=== PATIENT | male | born 1980 | race African-American/Black ===

== ENCOUNTER 2017-10-14 21:47 | Emergency (ER) | payer OTHER ==
[~2017-10-14] VITALS: Ht 177.8 cm; Wt 80.0 kg
[2017-10-14 22:02] VITALS: BP 135/87; PULSE 81; RESP 18; TEMP 98.2; O2SAT 100
[2017-10-14] MEDS ORDERED: SODIUM CHLOR 0.9% 1000 ML INJ 1,000 ML IV ONE (22:17)
--- NOTE | 2017-10-14 22:24 | PD ---
HPI Chief Complaint: Back/ Neck Pain or Injury Time Seen by Provider: 22:08 Travel History International Travel<30 days: No Contact w/Intl Traveler<30days: No Traveled to known affect area: No History of Present Illness HPI 37-year-old male presents emergency department for evaluation of left flank pain that has been persistent for the last 2 weeks. Patient states that his pain is sharp and comes and goes. Rated 8/10 and says his pain started in the left mid back and is radiating up to the left lower thoracic region. Patient denies any exacerbating factors. Denies any recent excessive activity or trauma. Says he is taking ibuprofen without significant relief. He denies any urinary symptoms, fever, nausea, vomiting, diarrhea. Denies history of kidney stones. Denies any medical history or medication use. Denies loss of bowel or bladder function, saddle anesthesia, radiculopathy. 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 PFSH Past Medical History Medical History: Denies Significant Hx Diminished Hearing: No Tetanus Vaccination: Unknown Influenza Vaccination: No Past Surgical History Surgical History: No Previous Surgery Social History Alcohol Use: Yes (occasionally) Tobacco Use: No Substance Use: No Allergies-Medications (Allergen,Severity, Reaction): Coded Allergies: No Known Allergies (Unverified , 10/14/17) Reported Meds & Prescriptions Reported Meds & Active Scripts Active No Active Prescriptions or Reported Medications Review of Systems Except as stated in HPI: all other systems reviewed are Neg Physical Exam Narrative GENERAL: Well-developed, well-nourished in no apparent distress SKIN: Focused skin assessment warm/dry. HEAD: Atraumatic. Normocephalic. EYES: Pupils equal and round. No scleral icterus. No injection or drainage. ENT: No nasal bleeding or discharge. Mucous membranes pink and moist. NECK: Trachea midline. No JVD. CARDIOVASCULAR: Regular rate and rhythm. No murmur appreciated. RESPIRATORY: No accessory muscle use. Clear to auscultation. Breath sounds equal bilaterally. GASTROINTESTINAL: Abdomen soft, non-tender, nondistended. No CVA tenderness MUSCULOSKELETAL: No obvious deformities. No clubbing. No cyanosis. No edema. NEUROLOGICAL: Awake and alert. No obvious cranial nerve deficits. Motor grossly within normal limits. Normal speech. PSYCHIATRIC: Appropriate mood and affect; insight and judgment normal. Data Data Last Documented VS Vital Signs Date Time Temp Pulse Resp B/P (MAP) Pulse Ox O2 Delivery O2 Flow Rate FiO2 10/14/17 22:02 98.2 81 18 135/87 (103) 100 Orders Orders Complete Blood Count With Diff (10/14/17 22:17) Comprehensive Metabolic Panel (10/14/17 22:17) Urinalysis - C+S If Indicated (10/14/17 22:17) Ct Abd/Pel W/O Iv Contrast (10/14/17 22:17) Ecg Monitoring (10/14/17 22:17) Iv Access Insert/Monitor (10/14/17 22:17) Ketorolac Inj (Toradol Inj) (10/14/17 22:30) Sodium Chloride 0.9% Flush (Ns Flush) (10/14/17 22:30) Sodium Chlor 0.9% 1000 Ml Inj (Ns 1000 M (10/14/17 22:17) Labs Laboratory Tests Test 10/14/17 22:36 White Blood Count 6.2 TH/MM3 Red Blood Count 4.50 MIL/MM3 Hemoglobin 14.0 GM/DL Hematocrit 39.7 % Mean Corpuscular Volume 88.3 FL Mean Corpuscular Hemoglobin 31.2 PG Mean Corpuscular Hemoglobin Concent 35.4 % Red Cell Distribution Width 12.9 % Platelet Count 234 TH/MM3 Mean Platelet Volume 8.7 FL Neutrophils (%) (Auto) 53.2 % Lymphocytes (%) (Auto) 33.4 % Monocytes (%) (Auto) 7.7 % Eosinophils (%) (Auto) 2.0 % Basophils (%) (Auto) 3.7 % Neutrophils # (Auto) 3.3 TH/MM3 Lymphocytes # (Auto) 2.1 TH/MM3 Monocytes # (Auto) 0.5 TH/MM3 Eosinophils # (Auto) 0.1 TH/MM3 Basophils # (Auto) 0.2 TH/MM3 CBC Comment DIFF FINAL Differential Comment Blood Urea Nitrogen 25 MG/DL Creatinine 1.66 MG/DL Random Glucose 115 MG/DL Albumin 4.4 GM/DL Calcium Level 9.6 MG/DL Aspartate Amino Transf (AST/SGOT) 27 U/L Alanine Aminotransferase (ALT/SGPT) 31 U/L Sodium Level 142 MEQ/L Potassium Level 3.5 MEQ/L Chloride Level 105 MEQ/L Carbon Dioxide Level 30.9 MEQ/L Anion Gap 6 MEQ/L Estimat Glomerular Filtration Rate 47 ML/MIN [facility] Medical Decision Making Medical Screen Exam Complete: Yes Emergency Medical Condition: Yes Differential Diagnosis Nephrolithiasis, hydronephrosis, urinary tract infection, muscle strain Narrative Course 37-year-old male presents emergency department for evaluation of left flank pain that has been persistent for the last 2 weeks. Patient states that his pain is sharp and comes and goes. Rated 8/10 and says his pain started in the left mid back and is radiating up to the left lower thoracic region. Patient denies any exacerbating factors. Denies any recent excessive activity or trauma. Says he is taking ibuprofen without significant relief. He denies any urinary symptoms, fever, nausea, vomiting, diarrhea. Denies history of kidney stones. Denies any medical history or medication use. Denies loss of bowel or bladder function, saddle anesthesia, radiculopathy. 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 Vital signs are stable. Blood pressure 135/87, temperature 98.2. Heart rate 81. Toradol and IV fluids administered. The exam findings are essentially unremarkable. Unable to reproduce his pain. No CVA tenderness. Patient resting comfortably in bed. Labs and imaging studies ordered. Last Impressions Abdomen/Pelvis CT 10/14/172216 Signed Impressions: Service Date/Time: Saturday, October 14, 2017 22:32 - CONCLUSION: 1. No radiopaque renal calculi or obstructive uropathy. 2. Normal appendix. 3. [place] periumbilical anterior abdominal wall hernia containing normal-appearing small bowel. Bubba Cruz MD BUN/creatinine slightly decreased for patient's age. BUN 25/creatinine 1.66 Urinalysis pending as of transfer care to Dr. Shaffer. Please see her note for further information and dispo. Scripts No Active Prescriptions or Reported Meds Condition: Stable Radha Travis Oct 14, 2017 22:24
[2017-10-14] MEDS ORDERED: SODIUM CHLORIDE 0.9% FLUSH 10 ML FLUSH IVF PRN (22:30)
[2017-10-14] MEDS ORDERED: KETOROLAC TROMETHAMINE 30 MG/ML (IVP) VIAL IV PUSH ONE (22:30)
[2017-10-14 22:41] LABS: AUTOMATED NEUTROPHIL # 3.3 TH/MM3 (1.8-7.7); BASOPHIL # 0.2 TH/MM3 (0-0.2); BASOPHIL % 3.7 % (0.0-2.0); EOSINOPHIL # 0.1 TH/MM3 (0-0.4); HEMATOCRIT 39.7 % (39.0-51.0); LYMPH % 33.4 % (9.0-44.0); LYMPHOCYTE # 2.1 TH/MM3 (1.0-4.8); MEAN CELL VOLUME 88.3 FL (80.0-100.0); MEAN CORPUSCULAR HEMOGLOBIN 31.2 PG (27.0-34.0); MEAN CORPUSCULAR HGB CONC 35.4 % (32.0-36.0); MEAN PLATELET VOLUME 8.7 FL (7.0-11.0); MONO % 7.7 % (0.0-8.0); MONOCYTE # 0.5 TH/MM3 (0-0.9); NEUT % 53.2 % (16.0-70.0); PLATELET COUNT 234 TH/MM3 (150-450); RED CELL DISTRIBUTION WIDTH 12.9 % (11.6-17.2); WHITE BLOOD COUNT 6.2 TH/MM3 (4.0-11.0)
--- NOTE | 2017-10-14 22:49 | RADRPT ---
EXAM DATE/TIME: 10/14/2017 22:32 [facility] COMPARISON: No previous studies available for comparison. INDICATIONS : Left flank pain. ORAL CONTRAST: No oral contrast ingested. RADIATION DOSE: 6.64 CTDIvol (mGy) MEDICAL HISTORY : None SURGICAL HISTORY : None. ENCOUNTER: Initial ACUITY: 1 day PAIN SCALE: 7/10 LOCATION: Left flank TECHNIQUE: Volumetric scanning of the abdomen and pelvis was performed. Using automated exposure control and ad justment of the mA and/or kV according to patient size, radiation dose was kept as low as reasonably achievable to obtain optimal diagnostic quality images. DICOM format image data is available electro nically for review and comparison. FINDINGS: LOWER LUNGS: The visualized lower lungs are clear. LIVER: Homogeneous density without lesion. There is no dilation of the biliary tree. No calcified gallston es. SPLEEN: Normal size without lesion. PANCREAS: Within normal limits. KIDNEYS: Normal in size and shape. There is no mass, stone, or hydronephrosis. ADRENAL GLANDS: Within normal limits. VASCULAR: There is no aortic aneurysm. BOWEL/MESENTERY: The stomach, small bowel, and colon demonstrate no acute abnormality. Appendix is visualized and norm al in appearance. There is no free intraperitoneal air or fluid. ABDOMINAL WALL: Large mouthed anterior abdominal wall periumbilical hernia containing a loop of normal-appearing smal l bowel. RETROPERITONEUM: There is no lymphadenopathy. BLADDER: No wall thickening or mass. No radiopaque calculi. REPRODUCTIVE: Within normal limits. INGUINAL: There is no lymphadenopathy or hernia. MUSCULOSKELETAL: Within normal limits for patient age. CONCLUSION: 1. No radiopaque renal calculi or obstructive uropathy. 2. Normal appendix. 3. [place] periumbilical anterior abdominal wall hernia containing normal-appearing small bowel. Bubba Cruz MD on October 14, 2017 at 22:43 Board Certified Radiologist. This report was verified electronically.
[2017-10-14 22:54] LABS: ALBUMIN 4.4 GM/DL (3.4-5.0); ALT (GPT) 31 U/L (12-78); AST (GOT) 27 U/L (15-37); BICARBONATE 30.9 MEQ/L (21.0-32.0); BLOOD UREA NITROGEN 25 MG/DL (7-18); CALCIUM 9.6 MG/DL (8.5-10.1); CHLORIDE 105 MEQ/L (98-107); CREATININE 1.66 MG/DL (0.60-1.30); GLOMERULAR FILTRATION RATE 47 ML/MIN (>89); GLUCOSE,RANDOM 115 MG/DL (74-106); SODIUM (NA) 142 MEQ/L (136-145)
[2017-10-14 22:57] LABS: ALKALINE PHOSPHATASE 70 U/L (45-117); TOTAL BILIRUBIN ADULT 0.3 MG/DL (0.2-1.0); TOTAL PROTEIN 7.7 GM/DL (6.4-8.2)
[2017-10-14 23:20] VITALS: RESP 20
[2017-10-14 23:22] LABS: BILIRUBIN, URINE NEG (NEG); BLOOD, URINE TRACE (NEG); GLUCOSE,URINE NEG (NEG); KETONE, URINE NEG (NEG); NITRITE,URINE NEG (NEG); PH, URINE 5.5 (5.0-8.5); URINE COLOR YELLOW (YELLW/STRAW); URINE LEUKOCYTE ESTERASE NEG (NEG)
--- NOTE | 2017-10-14 23:22 | PD ---
Data Data Last Documented VS Vital Signs Date Time Temp Pulse Resp B/P (MAP) Pulse Ox O2 Delivery O2 Flow Rate FiO2 10/14/17 23:20 20 10/14/17 22:02 98.2 81 135/87 (103) 100 Orders Orders Complete Blood Count With Diff (10/14/17 22:17) Comprehensive Metabolic Panel (10/14/17 22:17) Urinalysis - C+S If Indicated (10/14/17 22:17) Ct Abd/Pel W/O Iv Contrast (10/14/17 22:17) Ecg Monitoring (10/14/17 22:17) Iv Access Insert/Monitor (10/14/17 22:17) Ketorolac Inj (Toradol Inj) (10/14/17 22:30) Sodium Chloride 0.9% Flush (Ns Flush) (10/14/17 22:30) Sodium Chlor 0.9% 1000 Ml Inj (Ns 1000 M (10/14/17 22:17) Labs Laboratory Tests Test 10/14/17 22:36 10/14/17 23:15 White Blood Count 6.2 TH/MM3 Red Blood Count 4.50 MIL/MM3 Hemoglobin 14.0 GM/DL Hematocrit 39.7 % Mean Corpuscular Volume 88.3 FL Mean Corpuscular Hemoglobin 31.2 PG Mean Corpuscular Hemoglobin Concent 35.4 % Red Cell Distribution Width 12.9 % Platelet Count 234 TH/MM3 Mean Platelet Volume 8.7 FL Neutrophils (%) (Auto) 53.2 % Lymphocytes (%) (Auto) 33.4 % Monocytes (%) (Auto) 7.7 % Eosinophils (%) (Auto) 2.0 % Basophils (%) (Auto) 3.7 % Neutrophils # (Auto) 3.3 TH/MM3 Lymphocytes # (Auto) 2.1 TH/MM3 Monocytes # (Auto) 0.5 TH/MM3 Eosinophils # (Auto) 0.1 TH/MM3 Basophils # (Auto) 0.2 TH/MM3 CBC Comment DIFF FINAL Differential Comment Blood Urea Nitrogen 25 MG/DL Creatinine 1.66 MG/DL Random Glucose 115 MG/DL Total Protein 7.7 GM/DL Albumin 4.4 GM/DL Calcium Level 9.6 MG/DL Alkaline Phosphatase 70 U/L Aspartate Amino Transf (AST/SGOT) 27 U/L Alanine Aminotransferase (ALT/SGPT) 31 U/L Total Bilirubin 0.3 MG/DL Sodium Level 142 MEQ/L Potassium Level 3.5 MEQ/L Chloride Level 105 MEQ/L Carbon Dioxide Level 30.9 MEQ/L Anion Gap 6 MEQ/L Estimat Glomerular Filtration Rate 47 ML/MIN Urine Color YELLOW Urine Turbidity CLEAR Urine pH 5.5 Urine Specific Decker 1.026 Urine Protein NEG mg/dL Urine Glucose (UA) NEG mg/dL Urine Ketones NEG mg/dL Urine Occult Blood TRACE Urine Nitrite NEG Urine Bilirubin NEG Urine Urobilinogen LESS THAN 2.0 MG/DL Urine Leukocyte Esterase NEG Urine RBC LESS THAN 1 /hpf Urine WBC 1 /hpf Microscopic Urinalysis Comment CULT NOT INDICATED MDM Medical Record Reviewed: Yes Supervised Visit with CHICHI: No Interpretation(s) Last Impressions Abdomen/Pelvis CT 10/14/172216 Signed Impressions: Service Date/Time: Saturday, October 14, 2017 22:32 - CONCLUSION: 1. No radiopaque renal calculi or obstructive uropathy. 2. Normal appendix. 3. [place] periumbilical anterior abdominal wall hernia containing normal-appearing small bowel. Bubba Cruz MD Narrative Course During the course of the patient's emergency department visit, the patient was placed on a c iron worker with oximetry and frequent blood pressure monitoring. The patient had IV access obtained and blood work sent for analysis. The patient's case was checked out to me by Radha, the physician machine assistant. Please see her complete history and physical. The patient's case was checked out to me at the conclusion of her shift and a urinalysis. The patient was initially provided normal saline 1 L IV fluid bolus, Toradol 30 mg IV. The patient's laboratory studies were reviewed and remarkable for a white count of 6.2, hemoglobin 14, platelets 234 with 3.7 basophils, CMP is remarkable for a BUN of 25, creatinine 1.66, glucose 115, urinalysis shows trace occult blood, however on microscopy RBC is less than 1, otherwise unremarkable. Radiology studies were reviewed and remarkable for a CT scan of the abdomen and pelvis that shows no radiopaque renal calculi or obstructive uropathy, normal- appearing appendix, [place] periumbilical anterior abdominal wall hernia containing normal-appearing small bowel. The patient was instructed regarding his kidney function being slightly abnormal. The patient has been taking ibuprofen. The patient was instructed to discontinue this. The patient is instructed to increase his hydration. The patient is instructed to follow-up with the primary care physician for reexamination regarding his pain. He is given a copy of his laboratory results to discuss with his primary care physician. The patient will be given a prescription for hydrocodone. The patient is resting comfortably and feels better, is alert and in no distress. The patient's results and examination findings were discussed with the patient. The repeat examination is unremarkable and benign. The history, exam, diagnostic testing, and current condition do not suggest any significant pathology to warrant further testing, continued ED treatment, admission, or surgical evaluation at this point. The vital signs have been stable. The patient does not have uncontrollable pain, intractable vomiting, or other significant symptoms. The patient's condition is stable and appropriate for discharge. The patient will pursue further outpatient evaluation with a primary care physician or other designated or consulting physician as indicated in the discharge instructions. The patient expressed understanding and was agreeable with this plan. Diagnosis Primary Impression: Flank pain Referrals: [facility] 2 days Patient Instructions: Back Pain (ED), Flank Pain (ED), General Instructions Additional Instruction: The patient was instructed regarding his kidney function being slightly abnormal. The patient has been taking ibuprofen. The patient was instructed to discontinue this. The patient is instructed to increase his hydration. The patient is instructed to follow-up with the primary care physician for reexamination regarding his pain. He is given a copy of his laboratory results to discuss with his primary care physician. The patient will be given a prescription for hydrocodone. Med/Other Pt SpecificInfo: Prescription(s) given Scripts Hydrocodone-Acetaminophen (Hydrocodone-Acetaminophen) 5-325 mg Tab 1 TAB PO Q6H Y for PAIN, #12 TAB 0 Refills Prov: Janessa Shaffer MD 10/15/17 Disposition: 01 DISCHARGE HOME Condition: Stable Janessa Shaffer MD Oct 14, 2017 23:22
[2017-10-15] MEDS ORDERED: HYDR-3516 PO (00:15)
== END 2017-10-15 01:06 | disposition home or self-care (01) ==
LOC: NEPC 21:47
DX: K43.9 Ventral hernia without obstruction or gangrene (principal)
CPT/HCPCS: 74176; 80053; 81001; 85025; 96360; 99284; J1885; J7030